=== PATIENT | male | born 1940 | race Caucasian/White ===

== ENCOUNTER 2017-12-06 06:53 | Inpatient (IN) | payer OTHER ==
[2017-12-06] VITALS (15 sets, daily range): BP systolic 113–141; BP diastolic 46–80
[~2017-12-06] VITALS: Ht 175.3 cm; Wt 156.0 kg
[~2017-12-06 06:53] MED LIST: ACTOS30 MG PO; ADULT LOW DOSE81 M1 PO; BETIMOL 0.100 DROP/5 BOTH EYES; EXCEDRIN EXT1 TABLET PO; LISINOPRIL-HCT1 EAC3 PO; METFORMIN HCL1000 M1 PO; SIMVASTATIN40 MG PO
[2017-12-06 08:15] LABS: HEMATOCRIT 18.6 % (38.0-50.0); MCH 17.9 PG (29.0-34.0); MCHC 27.4 G/DL (30.0-36.0); MCV 65.3 FL (86-99); NRBC (%) 0.8 /100 WBC (0-0); PLATELET COUNT 404 K/uL (156-360); RBC DIS.WIDTH-CV 18.5 % (11.8-14.6); RBC DIS.WIDTH-SD 43.3 % (39-53); RED BLOOD COUNT 2.85 M/uL (4.00-5.50); WHITE BLOOD COUNT 10.1 K/uL (4.1-10.2)
[2017-12-06 08:16] LABS: HEMOGLOBIN 5.1 G/DL (12.5-16.6)
[2017-12-06 08:18] LABS: CHLORIDE 103 mEq/L (99-109); POTASSIUM 4.8 mEq/L (3.7-5.4); SODIUM 141 mEq/L (136-147)
[2017-12-06 08:19] LABS: GLUCOSE 116 mg/dL (70-99)
[2017-12-06 08:23] LABS: CREATININE 1.5 mg/dL (0.6-1.3); GFR ESTIMATE (CALCULATED) 48 mL/min/ (58.99-99999)
[2017-12-06 08:24] LABS: UREA NITROGEN (BUN) 45 mg/dL (9-23)
[2017-12-06 08:29] LABS: TROP-I INTERPRETATION NEGATIVE; TROPONIN-I 0.01 ng/mL (0.0-0.30)
[2017-12-06] MEDS ORDERED: TYLENOL EXTRA500 MG PO (12:02)
[2017-12-06] MEDS ORDERED: TYLENOL PM EX-1 EACH PO (12:02)
[2017-12-06] MEDS ORDERED: LATANOPROST2.5 ML BOTH EYES (12:03)
[2017-12-06] MEDS ORDERED: LOPRESSOR25 MG PO (12:03)
[2017-12-06] MEDS ORDERED: ELIQUIS5 MG PO (12:03)
[2017-12-06] MEDS ORDERED: LASIX20 MG PO (12:03)
[2017-12-06 14:59] LABS: HEMOGLOBIN A1c (GLYCOHEMOGLOB) 5.6 % (Below 5.7)
[2017-12-06 15:19] LABS: HEMATOCRIT 25.2 % (38.0-50.0); HEMOGLOBIN 7.5 G/DL (12.5-16.6); MCH 20.5 PG (29.0-34.0); MCHC 29.8 G/DL (30.0-36.0); NRBC (%) 1.3 /100 WBC (0-0); PLATELET COUNT 405 K/uL (156-360); RBC DIS.WIDTH-CV 21.3 % (11.8-14.6); RBC DIS.WIDTH-SD 51.7 % (39-53); RED BLOOD COUNT 3.65 M/uL (4.00-5.50); WHITE BLOOD COUNT 11.1 K/uL (4.1-10.2)
[2017-12-06 20:38] LABS: HEMATOCRIT 24.4 % (38.0-50.0); HEMOGLOBIN 7.2 G/DL (12.5-16.6); MCV 70.1 FL (86-99)
[2017-12-07] VITALS (10 sets, daily range): BP systolic 125–169; BP diastolic 50–88
[2017-12-07 05:36] LABS: HEMATOCRIT 24.4 % (38.0-50.0); HEMOGLOBIN 7.2 G/DL (12.5-16.6); MCV 70.7 FL (86-99)
[2017-12-07 05:39] LABS: INTER. NORMALIZED RATIO 1.4
[2017-12-07 05:42] LABS: PTT 27.7 SEC (25-37)
[2017-12-07 06:05] LABS: ALBUMIN 3.8 G/DL (3.2-4.8); ALKALINE PHOSPHATASE 26 IU/L (3-129); ALT (GPT) 8 IU/L (3-49); AST (GOT) 11 IU/L (2-34); CHLORIDE 107 MEQ/L (99-109); CREATININE 1.2 MG/DL (0.6-1.3); GFR ESTIMATE (CALCULATED) > 59 mL/min/ (58.99-99999); GLUCOSE 115 mg/dL (70-99); POTASSIUM 4.4 MEQ/L (3.7-5.4); SODIUM 142 MEQ/L (136-147); TOTAL PROTEIN 6.4 G/DL (6.4-8.3); UREA NITROGEN (BUN) 29 mg/dL (9-23)
[2017-12-07 23:07] LABS: APPEARANCE CLEAR ((CLEAR)); BILIRUBIN NEGATIVE; BLOOD NEGATIVE; COLOR YELLOW ((YELLOW)); GLUCOSE (STRIP) NEGATIVE; KETONES NEGATIVE; LEUKOCYTES NEGATIVE; NITRITE NEGATIVE; PROTEIN (STRIP) NEGATIVE; SPECIFIC GRAVITY 1.017 (1.000-1.030); UCUL ADDED? NO; UROBILINOGEN 0.2 MG/DL (0.2-1.0)
[2017-12-08 00:29] LABS: HEMATOCRIT 28.4 % (38.0-50.0); HEMOGLOBIN 8.6 G/DL (12.5-16.6)
[2017-12-08 04:03] VITALS: BP 130/75
[2017-12-08 05:54] LABS: BASOPHIL (%) 0.7 % (0-1); BASOPHIL COUNT 0.1 K/uL (0-0.1); EOSINOPHIL (%) 0.8 % (0-5); EOSINOPHIL COUNT 0.1 K/uL (0-0.3); HEMOGLOBIN 8.5 G/DL (12.5-16.6); IMMATURE GRANULOCYTE (%) 0.7 % (0.0-0.7); LYMPHOCYTE (%) 12.6 % (15-42); LYMPHOCYTE COUNT 1.2 K/uL (1.0-2.8); MCH 21.5 PG (29.0-34.0); MCHC 29.3 G/DL (30.0-36.0); MCV 73.4 FL (86-99); MONOCYTE (%) 11.9 % (3-12); MONOCYTE COUNT 1.1 K/uL (0-0.8); NEUTROPHIL (%) 73.3 % (45-76); NEUTROPHIL COUNT 6.7 K/uL (1.8-6.4); NRBC (%) 0.5 /100 WBC (0-0); PLATELET COUNT 336 K/uL (156-360); RBC DIS.WIDTH-CV 22.8 % (11.8-14.6); RBC DIS.WIDTH-SD 59.5 % (39-53); RED BLOOD COUNT 3.95 M/uL (4.00-5.50); WHITE BLOOD COUNT 9.2 K/uL (4.1-10.2)
[2017-12-08 06:17] LABS: GFR ESTIMATE (CALCULATED) > 59 mL/min/ (58.99-99999); UREA NITROGEN (BUN) 19 mg/dL (9-23)
[2017-12-08 06:24] LABS: A/G RATIO 1.4 (1.1-1.8); ALBUMIN 3.7 G/DL (3.2-4.8); ALBUMIN 3.7 G/DL (3.4-5.0); ALKALINE PHOSPHATASE 25 IU/L (3-129); ALT (GPT) 8 IU/L (3-49); AST (GOT) 14 IU/L (2-34); CHLORIDE 106 MEQ/L (99-109); CREATININE 1.1 MG/DL (0.6-1.3); GFR ESTIMATE (CALCULATED) > 59 mL/min/ (58.99-99999); GLOBULINS 2.6 G/DL (2.3-3.5); GLUCOSE 119 mg/dL (70-99); IRON 20 MCG/DL (35-150); POTASSIUM 4.4 MEQ/L (3.7-5.4); SODIUM 142 MEQ/L (136-147); TOTAL BILIRUBIN 1.1 MG/DL (0.0-1.0); TOTAL PROTEIN 6.3 G/DL (6.4-8.2); TOTAL PROTEIN 6.3 G/DL (6.4-8.3); UREA NITROGEN (BUN) 18 mg/dL (9-23)
[2017-12-08 07:44] VITALS: BP 124/56
[2017-12-08 07:49] LABS: FERRITIN 10 NG/ML (22-322)
[2017-12-08 11:12] LABS: ALBUMIN 3.26 G/DL (3.6-4.9); ALPHA-1 GLOBULIN 0.37 G/DL (0.15-0.40); ALPHA-2 GLOBULIN 0.84 G/DL (0.45-0.85); BETA-GLOBULIN 0.88 G/DL (0.65-1.15); GAMMA-GLOBULIN 0.95 G/DL (0.60-1.35)
== END 2017-12-08 15:21 | disposition home or self-care (01) | DRG 378 ==
LOC: EME 06:53 → EDOF 11:54 → 4EAST 11:54 → ENRESERV 11:56 → 4EAST 15:53
PROVIDERS: Emergency Medicine; Hospitalist; Internal Medicine; Internal Medicine Hematology & Oncology
PROC: 30233N1 Transfusion of Nonautologous Red Blood Cells into Peripheral Vein, Percutaneous Approach (ICD-10-PCS; 2017-12-06)
PROC: 0DB68ZX Excision of Stomach, Via Natural or Artificial Opening Endoscopic, Diagnostic (ICD-10-PCS; principal; 2017-12-07)
PROC: 0DJD8ZZ Inspection of Lower Intestinal Tract, Via Natural or Artificial Opening Endoscopic (ICD-10-PCS; 2017-12-08)
DX: K92.2 Gastrointestinal hemorrhage, unspecified (principal); D50.9 Iron deficiency anemia, unspecified; N17.9 Acute kidney failure, unspecified; I48.0 Paroxysmal atrial fibrillation; I48.2 Chronic atrial fibrillation; D47.3 Essential (hemorrhagic) thrombocythemia; D18.09 Hemangioma of other sites; K57.30 Diverticulosis of large intestine without perforation or abscess without bleeding; E11.9 Type 2 diabetes mellitus without complications; E78.5 Hyperlipidemia, unspecified; I10 Essential (primary) hypertension; K44.9 Diaphragmatic hernia without obstruction or gangrene; R06.02 Shortness of breath; H40.9 Unspecified glaucoma; E66.01 Morbid (severe) obesity due to excess calories; Z68.43 Body mass index [BMI] 50.0-59.9, adult; Z79.01 Long term (current) use of anticoagulants; Z82.49 Family history of ischemic heart disease and other diseases of the circulatory system; Z87.891 Personal history of nicotine dependence
CPT/HCPCS: 36415; 71045; 72157; 74177; 80048; 80053; 80061; 81003; 82565; 82728; 82948; 83036; 83540; 84165; 84484; 84520; 85014; 85018; 85025; 85027; 85610; 85730; 86850; 86900; 86901; 86920; 88305; 88312; 93005; 93970; 99281; 99285; C9113; G0103; J1940; J2250; J7030; P9016